=== PATIENT | male | born 1960 | race African-American/Black ===

== ENCOUNTER 2019-03-28 00:17 | Inpatient (IN) | payer MEDICARE, OTHER ==
[~2019-03-28] VITALS: Ht 177.8 cm; Wt 81.6 kg
--- NOTE | 2019-03-28 00:25 | NUR ---
BIB EMS FROM [facility] C/O INCREASED AGITATION, BECOMING VERBALLY AGRESSIVE TO SNF STAFF. PT REMAINS TO BE VERBALLY ABUSIVE AND UNCOOPERATIVE HERE IN THE ER. PT AAOX2, CONFUSED, NO ACUTE DISTRESS NOTED, RESP EVEN AND UNLABORED. PLACE PT ON CARDIAC MONITORING, CONTINUOUS POX. ER MD AT BEDSIDE TO EVAL PT WITH ORDERS RECEIVED. WILL CARRY OUT ORDERS.
--- NOTE | 2019-03-28 00:29 | NUR ---
ORAL PATHOLOGIST AT [facility] FOR BLOOD DRAW.
--- NOTE | 2019-03-28 00:35 | NUR ---
BLOOD DRAWN BY STORE SALES CONSULTANT.
[2019-03-28 00:43] LABS: BASOPHILS % (AUTO) 0.4 % (0.0-2.0); EOSINOPHILS % (AUTO) 1.2 % (0.0-6.0); HEMATOCRIT 39 % (39-51); HEMOGLOBIN 12.6 g/dL (13.5-17.5); LYMPHOCYTES # (AUTO) 1.2 /CMM (0.8-4.8); LYMPHOCYTES % (AUTO) 17.8 % (20.0-44.0); MEAN CORPUSCULAR HGB CONC 32 g/dl (31.0-36.0); MEAN CORPUSCULAR VOLUME 89 fL (80-96); MONOCYTES # (AUTO) 0.6 /CMM (0.1-1.30); MONOCYTES % (AUTO) 8.3 % (2.0-12.0); NEUTROPHILS % (AUTO) 72.3 % (43.0-81.0); PLATELET COUNT (AUTO) 311 /CMM (150-450); RED BLOOD CELL COUNT(AUTO) 4.38 MIL/uL (4.5-6.0); WHITE BLOOD COUNT (AUTO) 6.9 K/uL (4.3-11.0)
[2019-03-28 00:59] LABS: CARBON DIOXIDE 31 mmol/L (21-32); CHLORIDE 105 mmol/L (98-107); CREATININE 0.7 mg/dL (0.6-1.3); GLUCOSE 107 mg/dL (74-106); POTASSIUM 4.1 mmol/L (3.5-5.1); SODIUM SERUM 141 mmol/L (136-145); UREA NITROGEN, BLOOD 22 mg/dL (7-18)
[2019-03-28 01:03] LABS: ACETAMINOPHEN 0 ug/ml (10-30); ALANINE AMINOTRANSFERASE 23 U/L (12-78); ALBUMIN 3.6 g/dL (3.4-5.0); ALCOHOL, BLOOD < 3 mg/dL (0-0); ALKALINE PHOSPHATASE 65 U/L (46-116); ASPARTATE AMINOTRANSFERASE 25 U/L (15-37); BILIRUBIN,DIRECT 0.1 mg/dL (0.0-0.2); BILIRUBIN,TOTAL 0.4 mg/dL (0.2-1.0); SALICYLATE 0.2 mg/dL (2.8-20.0); TOTAL PROTEIN, SERUM 7.5 g/dL (6.4-8.2)
--- NOTE | 2019-03-28 02:00 | NUR ---
EZ PIERREW AT BEDSIDE TO DONNA ANDINO.
[2019-03-28] MEDS ORDERED: CLON0.5T PO (02:45)
[2019-03-28] MEDS ORDERED: LORA-259 PO (02:45)
[2019-03-28] MEDS ORDERED: TEMA15CA5 PO (02:45)
[2019-03-28] MEDS ORDERED: OLAN10TA3 PO (02:45)
--- NOTE | 2019-03-28 03:06 | NUR ---
REPORT CALLED TO [facility] P[facility]A. WILL TRANSPORT PT TO ROOM 220
--- NOTE | 2019-03-28 03:15 | NUR ---
GPS AMPLIFIER MECHANIC NOTES: RECEIVED 58 Y/O MALE PATIENT FROM ER DEPARTMENT. PATIENT ARRIVED ON THIS UNIT AT 0315 ACCOMPANIED BY A NURSE VIA WHEELCHAIR . PATIENT ADMITTED ON A 5150 HOLD FOR GD. PER HOLD PATIENT ARRIVED TO [facility] GPS UNIT FOR PSYCHIATRIC EVALUATION DUE TO PT BEING AGITATED, VERBALLY AGGRESSIVE, ANXIOUS, AND NON COMPLAIN WITH CARE. UPON FACE TO FACE ASSESSMENT PATIENT NOTED EASILY AGITATED, CONFUSED, RESERVED, LOW ENERGY, NON COMPLAINT, POOR HISTORIAN AND FORGETFUL . PT DENIES S/I AND H/I AT THIS TIME. PATIENT IS CURRENTLY LYING IN BED AWAKE. NO S/S OF RESP DISTRESS. BREATHING EVEN AND UNLABORED. PT IS ALERT AND ORIENTED X 1-2 ON ROOM AIR. PATIENT HAS NO NEEDS AT THIS TIME. PATIENT UNABLE TO SIGN PROPER PAPERWORK DUE TO CONFUSION . PATIENT ADVISED OF HIS HOLD AND PATIENT RIGHTS HANDBOOK GIVEN. PATIENTS BELONGINGS WERE INVENTORIED AND CHECKED FOR CONTRABAND. PATIENT ADVANCED DIRECTIVE PREFERENCES AND NECESSARY PAPERWORK COMPLETED. PATIENT REFUSED BODY ASSESSMENT. PICTURE TAKEN OF PT FOR IDENTIFICATION PUT IN CHART. PT ORIENTED TO ROOM, FLOOR, AND STAFF WITH ALL QUESTIONS ANSWERED. PATIENT EDUCATED ON THE USE OF CALL HERNANDEZ. PATIENTS SIDERAILS ARE UP X2 FOR SAFETY. PT REFUSED INITIAL BLOOD SUGAR CHECK . MRSA SWAB DONE IN THE ER DEPARTMENT. PATIENTS BED LOCKED, LOW AND I WILL CONTINUE TO MONITOR THIS PATIENT Q15 MIN WITH THE HELP OF THE STAFF TO MAINTAIN SAFETY.
--- NOTE | 2019-03-28 03:21 | NUR ---
PT TO [facility] VIA WHEELCHAIR.
[2019-03-28] MEDS ORDERED: ACETAMINOPHEN 325 MG TABLET PO PRN (03:30)
[2019-03-28] MEDS ORDERED: MAGNESIUM HYDROXIDE 30 ML UDC PO PRN (03:30)
[2019-03-28] MEDS ORDERED: MAG HYDROX/AL HYDROX/SIMETH 30 ML UDC PO PRN (03:30)
[2019-03-28 03:46] VITALS: BP 127/86
[2019-03-28] MEDS ORDERED: BLOOD SUGAR DIAGNOSTIC 1 EACH STRIP IN ONE (04:00)
[2019-03-28 08:00] VITALS: BP 139/97
[2019-03-28] MEDS: NICOTINE PATCH (21MG) 21 MG PATCH.TD24 TD SCH (08:25)
--- NOTE | 2019-03-28 09:38 | NUR ---
PATIENT IS REFUSING TO GIVE URINE SAMPLE
--- NOTE | 2019-03-28 10:49 | NUR ---
FACILITY CONTACT: JENNIEFR contacted Rabia, admissions specialist at [facility] Address: [address] [place] [address] who states pt is able to return once stable for discharge.
--- NOTE | 2019-03-28 11:56 | NUR ---
INITIAL DISCHARGE PLAN: Patient will return to [facility]. JENNIFER contacted Rabia, patient information coordinator at [facility] Address: [address] [place] [address] who states pt is able to return once stable for discharge. JENNIFER will help form a safe and proper discharge in collaboration with .
[2019-03-28] MEDS: OLANZAPINE 10 MG TABLET PO SCH ×2 (12:29→17:12)
[2019-03-28 16:00] VITALS: BP 125/70
[2019-03-28 20:40] VITALS: BP 111/61
--- NOTE | 2019-03-29 02:42 | NUR ---
RN NOTE: PT REFUSED TO GIVE UA SAMPLE.
[2019-03-29 08:00] VITALS: BP 144/93
[2019-03-29] MEDS: NICOTINE PATCH (21MG) 21 MG PATCH.TD24 TD SCH (09:00)
[2019-03-29] MEDS: OLANZAPINE 10 MG TABLET PO SCH ×2 (09:07→17:17)
[2019-03-29] MEDS: clonazePAM 0.5 MG TABLET PO PRN ×2 (10:49→17:17)
--- NOTE | 2019-03-29 10:49 | NUR ---
GIVEN ATIVAN FOR AGITATION.PACING IN THE HALLWAY. Addendum: 03/29/19 at 1711 by RUFUS MEDRANO RN CORRECTION GIVEN CLONOPIN.
--- NOTE | 2019-03-29 11:30 | NUR ---
SEVERAL TIMES ENCOURAGED PT. TO GIVE URINE SAMPLE,BUT REFUSED.DID HOWEVER COOPERATE AND ALLOW TODAY'S LAB DRAW.
[2019-03-29 11:37] LABS: BASOPHILS % (AUTO) 0.4 % (0.0-2.0); EOSINOPHILS % (AUTO) 1.5 % (0.0-6.0); HEMATOCRIT 40 % (39-51); LYMPHOCYTES # (AUTO) 1.4 /CMM (0.8-4.8); LYMPHOCYTES % (AUTO) 27.2 % (20.0-44.0); MEAN CORPUSCULAR HGB CONC 32 g/dl (31.0-36.0); MEAN CORPUSCULAR VOLUME 89 fL (80-96); MONOCYTES # (AUTO) 0.5 /CMM (0.1-1.30); MONOCYTES % (AUTO) 10.3 % (2.0-12.0); NEUTROPHILS # (AUTO) 3.2 /CMM (1.8-8.9); NEUTROPHILS % (AUTO) 60.6 % (43.0-81.0); PLATELET COUNT (AUTO) 309 /CMM (150-450); RED BLOOD CELL COUNT(AUTO) 4.54 MIL/uL (4.5-6.0); WHITE BLOOD COUNT (AUTO) 5.3 K/uL (4.3-11.0)
[2019-03-29 11:46] LABS: CREATININE 0.8 mg/dL (0.6-1.3); POTASSIUM 4.6 mmol/L (3.5-5.1)
[2019-03-29 16:00] VITALS: BP 125/75
--- NOTE | 2019-03-29 17:15 | NUR ---
GIVEN CLONOPIN FOR AGITATION.
[2019-03-30 08:00] VITALS: BP 119/67
[2019-03-30] MEDS: NICOTINE PATCH (21MG) 21 MG PATCH.TD24 TD SCH (09:00)
[2019-03-30] MEDS: OLANZAPINE 10 MG TABLET PO SCH ×2 (09:08→16:25)
[2019-03-30 16:00] VITALS: BP 132/64
[2019-03-30] MEDS: clonazePAM 0.5 MG TABLET PO PRN (18:02)
--- NOTE | 2019-03-30 18:02 | NUR ---
RN NOTE- AGITATION, SWEARING, THREATENING. KLONOPIN 0.5 MG GIVEN. REDIRECTED. FOOD GIVEN. PT CALMED
--- NOTE | 2019-03-30 21:15 | NUR ---
REFUSED WEEKLY SKIN ASSESSMENT PATIENT REFUSED WEEKLY SKIN ASSESSMENT TONIGHT, GOT AGITATED, ANXIOUS & COVERED HIS FACE WITH THE BLANKET & ASKED THE RN TO LEAVE THE ROOM WITHOUT BOTHERING HIM. UNCOOPERATIVE DESPITE OF RISKS & BENEFITS EXPLANATIONS. ATTEMPTED X 3 BUT RN WAS UNABLE TO ASSESS PT'S SKIN DUE TO AGITATION & UNCOOPERATIVE BEHAVIOR.
[2019-03-31] MEDS: clonazePAM 0.5 MG TABLET PO PRN ×2 (04:42→13:24)
--- NOTE | 2019-03-31 04:45 | NUR ---
PRN KLONOPIN GIVEN PATIENT WOKE UP, NOTED TO BE VERY ANXIOUS, RESTLESS, PACING IN & OUT OF HIS ROOM, PRN KLONOPIN 0.5 MG 1 TAB PO GIVEN. WILL CONTINUE TO MONITOR FOR ANY CHANGES.
--- NOTE | 2019-03-31 05:03 | NUR ---
PRN TYLENOL GIVEN PATIENT STATED," I WANT MY TYLENOL, MY BODY HURTS". PRN TYLENOL 650 MG PO GIVEN.
[2019-03-31 08:00] VITALS: BP 122/75
[2019-03-31] MEDS: NICOTINE PATCH (21MG) 21 MG PATCH.TD24 TD SCH (08:09)
[2019-03-31] MEDS: OLANZAPINE 10 MG TABLET PO SCH ×2 (08:09→16:03)
--- NOTE | 2019-03-31 13:25 | NUR ---
RN-CO: KLONOPIN 0.5 MG PO FOR AGITATION. MANIFESTED BY BANGING THE DOORS.
--- NOTE | 2019-03-31 15:58 | NUR ---
GROUP NOTE: Pt unable to participate in group due to receiving Klonopin PO PRN due to increased agitation, pt was asleep and not easily aroused.
--- NOTE | 2019-03-31 20:00 | NUR ---
GPS RN NOTE PATIENT REFUSED VITALS, ATTEMPTED X 3 BUT CONTINUED TO REFUSE DESPITE OF RISKS & BENEFITS EXPLANATIONS.
[2019-04-01] MEDS: clonazePAM 0.5 MG TABLET PO PRN ×3 (04:34→14:13)
--- NOTE | 2019-04-01 04:34 | NUR ---
PRN KLONOPIN GIVEN PATIENT IS RESTLESS, ANXIOUS, AGITATED, PARANOID. PRN KLONOPIN 1 MG PO GIVEN ORDERED.
--- NOTE | 2019-04-01 05:31 | NUR ---
GPS RN NOTE PATIENT IS KEEP WALKING IN & OUT OF HIS ROOM, SEXUALLY INAPPROPRIATE, ASKING RN TO GIVE HIM A KISS. REDIRECTED THE PATIENT, SET LIMITS. CALLED SECURITY & THEY REDIRECTED HIM WELL. PATIENT IS PARANOID, RESPONDING TO EXTERNAL STIMULI. CONFUSED, FORGETFUL. KEEP ASKING FOR SNACK. SNACK GIVEN MULTIPLE TIMES. WILL CONTINUE TO MONITOR FOR SAFETY & BEHAVIOR.
[2019-04-01 08:00] VITALS: BP 126/88
[2019-04-01] MEDS: OLANZAPINE 10 MG TABLET PO SCH ×2 (08:34→16:08)
[2019-04-01] MEDS: NICOTINE PATCH (21MG) 21 MG PATCH.TD24 TD SCH (08:35)
--- NOTE | 2019-04-01 08:35 | NUR ---
RN-CO: KLONOPIN 1 MG PO GIVEN FOR AGITATION, MANIFESTED BY PROVOKING HIS ROOM MATE. AND BEING SEXUALLY INAPPROPRIATE.
--- NOTE | 2019-04-01 14:15 | NUR ---
RN-CO: KLONOPIN 1 MG PO FOR AGITATION. FOCUS ON HIS DISCHARGE.
[2019-04-01 16:00] VITALS: BP 113/79
--- NOTE | 2019-04-01 16:00 | NUR ---
GROUP NOTE: Pt unable to participate in group due to receiving Klonopin PO PRN due to increased agitation, yelling, screaming. Pt is responding to internal stimuli and not appropriate for group at this time due to his unpredictability and verbal aggressive behavior.
[2019-04-02] MEDS: OLANZAPINE 10 MG TABLET PO SCH ×2 (08:17→16:38)
[2019-04-02] MEDS: NICOTINE PATCH (21MG) 21 MG PATCH.TD24 TD SCH (08:17)
[2019-04-02 16:00] VITALS: BP 149/95
[2019-04-02 20:12] VITALS: BP 144/91
[2019-04-03 08:00] VITALS: BP 148/88
[2019-04-03] MEDS: OLANZAPINE 10 MG TABLET PO SCH ×2 (08:41→16:17)
[2019-04-03] MEDS: NICOTINE PATCH (21MG) 21 MG PATCH.TD24 TD SCH (08:43)
--- NOTE | 2019-04-03 15:10 | NUR ---
GROUP NOTE: SW encouraged pt to participate in group therapy discussing "suicidal urges." Pt not appropriate for group at this time pt is actively responding to internal stimuli and is verbally aggressive and unpredictable.
[2019-04-03 16:00] VITALS: BP 152/80
--- NOTE | 2019-04-03 19:30 | NUR ---
GPS RN NOTE, RECEIVED PATIENT AWAKE AND IN BED, NO S/S OR COMPLAINTS OF PAIN AT THIS TIME. PATIENT IS DISPLAYING NO S/S OF APPARENT DISTRESS AT THIS TIME. PATIENT BREATHING IS UNLABORED WITH EQUAL RISE AND FALL OF THE CHEST. PATIENT IS ALERT AND ORIENTED X 2-3 ON ROOM AIR WITH A SPO2 95%. PATIENT IS MED COMPLIANT, ANXIOUS AT TIMES, SUSPICIOUS, PARANOID, UNPREDICTABLE, MAKES NEEDS KNOWN, AND COOPERATIVE. PATIENT DENIES SUICIDAL AND HOMICIDAL IDEATIONS AT THIS TIME. PATIENT ASSISTED WITH TURNING AND REPOSITIONING Q2HR AND PRN FOR COMFORT AND CIRCULATION. PATIENT HAS NO NEEDS AT THIS TIME. PATIENT EDUCATED ON THE USE OF THE CALL HERNANDEZ. PATIENT BED SIDE RAILS UP X 2 FOR SAFETY. PATIENT BED IS LOCKED, LOW, WITH BED ALARM ON. WILL CONTINUE TO MONITOR THIS PATIENT Q15 MINUTES WITH THE HELP OF STAFF TO MAINTAIN SAFETY.
[2019-04-03 20:24] VITALS: BP 128/87
[2019-04-04] MEDS: clonazePAM 0.5 MG TABLET PO PRN ×2 (04:43→09:48)
--- NOTE | 2019-04-04 04:43 | NUR ---
GPS RN NOTE, PATIENT HAS A COMPLAINT OF FEELING ANXIOUS AND IS REQUESTING KLONOPIN AT THIS TIME. PATIENT VITAL SIGNS ARE STABLE. GAVE KLONOPIN 1.0 MG PO Q4HR PRN ORDERED. WILL REASSESS FOR ANXIETY AND I WILL CONTINUE TO MONITOR THIS PATIENT.
[2019-04-04 08:00] VITALS: BP 132/86
[2019-04-04] MEDS: NICOTINE PATCH (21MG) 21 MG PATCH.TD24 TD SCH (08:11)
[2019-04-04] MEDS: OLANZAPINE 10 MG TABLET PO SCH ×2 (08:12→17:04)
--- NOTE | 2019-04-04 09:48 | NUR ---
RN-CO: Patient was given klonopin 1mg po for restlessness.
--- NOTE | 2019-04-04 15:16 | NUR ---
GROUP NOTE: SW attempted to engage pt in group therapy on this present day to discuss "social supports." S: Pt states, "My family is in [place] and they call me once in a while." O: Pt was wiggling and unable to sit still, after pt made his statement he got up and walked away. Pt appeared to be responding to internal stimuli and he was mumbling when he was walking away. A: Pt was not present in group long enough to gain awareness of the lack of social supports. P: SW will continue to validate pts experiences of distress as understandable given his symptoms
[2019-04-04 16:00] VITALS: BP 155/72
[2019-04-04 20:05] VITALS: BP 128/74
[2019-04-05] MEDS: clonazePAM 0.5 MG TABLET PO PRN ×2 (06:25→20:11)
[2019-04-05 08:00] VITALS: BP 142/75
[2019-04-05] MEDS: OLANZAPINE 10 MG TABLET PO SCH ×2 (08:14→16:33)
[2019-04-05] MEDS: NICOTINE PATCH (21MG) 21 MG PATCH.TD24 TD SCH (09:00)
[2019-04-05 16:00] VITALS: BP 129/76
[2019-04-05 20:03] VITALS: BP 150/72
--- NOTE | 2019-04-05 20:11 | NUR ---
GPS-RN PATIENT IS AGGRESSIVE AND POSING DANGERS TOWARDS STAFFS BY LIFTING HIS TWO FISTS. PT HAS RAMBLING WORDS NON SENSICAL. CALLED SECURITY FOR HELP. ENCOURAGED PATIENT TO VERBALIZE FEELINGS. ADMINISTERED ATIVAN 1MG PO ORDERED. PT TOLERATED WELL. 20:18 - PATIENT CALMED DOWN. OFFERED SNACKS AND CONSUMED 100%. WILL CONTINUE TO MONITOR FOR PT'S SAFETY. Addendum: 04/06/19 at 0 by JOSI MILLER RN 20:18- redirected patient's behavior Addendum: 04/06/19 at 211 by JOSI MILLER RN CORRECTION: ADMINISTERED KLONOPIN 1MG PO ORDERED (NOT ATIVAN)
[2019-04-05] MEDS: TEMAZEPAM 7.5 MG CAPSULE PO PRN (21:41)
[2019-04-06 08:00] VITALS: BP 138/84
--- NOTE | 2019-04-06 08:01 | NUR ---
GPS/RN KLONOPIN PO GIVEN FOR ANXIETY ORDERED
[2019-04-06] MEDS: NICOTINE PATCH (21MG) 21 MG PATCH.TD24 TD SCH (08:20)
[2019-04-06] MEDS: clonazePAM 0.5 MG TABLET PO PRN ×3 (08:21→22:36)
[2019-04-06] MEDS: OLANZAPINE 10 MG TABLET PO SCH ×2 (08:21→17:27)
[2019-04-06 16:00] VITALS: BP 127/74
[2019-04-06] MEDS: TEMAZEPAM 7.5 MG CAPSULE PO PRN (23:05)
--- NOTE | 2019-04-07 06:23 | NUR ---
RN NOTES PT REFUSED SKIN CHECK, BECAME ANGRY WHEN ASKED IF NURSE CAN DO HIS BODY CHECK, STATING "GET OUT OF HERE". WILL CONTINUE TO MONITOR AND ENDORSE TO AM SHIFT.
[2019-04-07] MEDS: OLANZAPINE 10 MG TABLET PO SCH (08:33)
--- NOTE | 2019-04-07 08:34 | NUR ---
DISCHARGE NOTE: Pt will be discharged at 1:00pm via [facility] to [facility] Address: [address] [place] [address] . Pt has no family to notify. Pts mood is euthymic with congruent affect. Pt denied visual/auditory hallucinations and suicidal/homicidal ideation. For smoking cessation, the patient was referred to the [employer] and [employer] [id number]. Pt will also participate in a telephone meeting with [employer] [phone] on Monday April 08, 2019 at 8:00am. Pt will be under the care of Psychiatrist: Dr. Hui Address: [address] [place] [address] and Graduate Recruiter: Dr Alan Address: [address] [address] . The multidisciplinary exit care form was done, printed, signed, and given to the patient.
[2019-04-07] MEDS: NICOTINE PATCH (21MG) 21 MG PATCH.TD24 TD SCH (08:36)
--- NOTE | 2019-04-07 09:00 | NUR ---
RN-CO: Dr. Hui blockmason for Dr Villatoro gave an order to discontinue hold and discharge patient to SNF. And continue all psychiatric orders. Patient remains calm and cooperative to care. Denied suicidal and homicidal ideation. Denied auditory and visual hallucinations. NO acute distress noted. Medically cleared for discharge.
--- NOTE | 2019-04-07 10:17 | NUR ---
RN NOTE: REPORT CALLED TO [facility] AND SPOKE WITH MIREYA QUESADA.
--- NOTE | 2019-04-07 12:40 | NUR ---
RN-CO: Zachary Fontenot TRANSPLANT REGISTERED NURSE came seen patient and medically cleared him for discharge.
--- NOTE | 2019-04-07 13:30 | NUR ---
RN NOTE: 58 YEAR OLD MALE DISCHARGED TO [facility] IN STABLE CONDITION. PT COMPLIANT WITH MEDICATIONS AND COOPERATIVE WITH TREATMENT PLAN. PT DENIES SI/HI AND INSTRUCTED TO GO TO THE CLOSEST ER IF DEVELOPING SI/HI. BEHAVIOR IMPROVED, PSYCHIATRIC TREAMENT PLANS MET, MEDICAL TREATMENT PLANS DEFERRED FOR CONTINUAL MONITORING. EDUCATED PATIENT ABOUT AFTER CARE PLAN AND COPY PROVIDED. RETURNED PERSONAL BELONGINGS TO PATIENT. MEDICATIONS RECONCILED WITH DR. UNDERWOOD AND [facility] WHEELCHAIR VAN OPERATOR FIRST RESPONDER REPORT GIVEN TO MIREYA QUESADA. PT SIGNED DISCHARGE PAPERWORK. PT REFUSED DISCHARGE SKIN ASSESSMENT. PT LEFT THE UNIT AT 13:30 VIA AMBULANCE WITH EMS [facility]
== END 2019-04-07 13:30 | DRG 885 ==
LOC: ER 00:19 → GPS 02:35
PROVIDERS: ADMIT Psychiatry & Neurology Psychiatry; ATTEND Nurse Practitioner Acute Care
DX: F25.9 Schizoaffective disorder, unspecified (principal); E86.0 Dehydration; F29 Unspecified psychosis not due to a substance or known physiological condition; D63.8 Anemia in other chronic diseases classified elsewhere; F10.10 Alcohol abuse, uncomplicated; F17.210 Nicotine dependence, cigarettes, uncomplicated
CPT/HCPCS: 36415; 80048-TC; 80061-TC; 80076-TC; 85025-TC; 87081-TC; G0480